=== PATIENT | male | born 2000 | race Hispanic/Latino ===

== ENCOUNTER 2024-04-28 19:38 | Emergency (ER) | payer OTHER ==
[~2024-04-28] VITALS: Ht 175.3 cm; Wt 74.8 kg
[2024-04-28] MEDS ORDERED: MORPHINE SULFATE 10 MG/ML VIAL IM ONE (20:15)
[2024-04-28 20:23] LABS: BILIRUBIN, URINE NEGATIVE (negative); BLOOD/HGB, URINE NEGATIVE (Negative); KETONE, URINE NEGATIVE (Negative); LEUK ESTERASE, URINE NEGATIVE (negative); NITRITE, URINE NEGATIVE (negative)
[2024-04-28 20:29] LABS: EPITHELIAL CELLS, URINE SQUAMOUS 1+ /lpf (0-1+)
[2024-04-28 20:30] LABS: BACTERIA, URINE RARE /hpf (negative); CASTS, URINE NONE SEEN \\lpf; COLLECTION TYPE, URINE CLEAN CATCH; CRYSTALS, URINE NONE SEEN (0-1+); RED BLOOD CELLS, URINE 0-1 /hpf (0-5); REFLEX CULTURE, URINE No (No); WHITE BLOOD CELLS, URINE 0-1 /HPF (0-5)
[2024-04-28] MEDS ORDERED: CYCLOBENZAPRINE10 MG PO (21:51)
[2024-04-28] MEDS ORDERED: CYCLOBENZAPRINE HCL 10 MG HOME.PACK PO ONE (22:00)
[2024-04-28] MEDS ORDERED: methylPREDNISolone 4 MG HOME.PACK PO ONE (22:00)
[2024-04-28 22:18] VITALS: BP 105/92
[2024-04-28 23:43] LABS: N. GONORRRHOEAE BY PCR NOT DETECTED (NOT DETECT)
== END 2024-04-28 22:16 | disposition home or self-care (01) ==
LOC: ED 19:38
PROVIDERS: Family Medicine
DX: S39.012A Strain of muscle, fascia and tendon of lower back, initial encounter (principal); S30.22XA Contusion of scrotum and testes, initial encounter; W11.XXXA Fall on and from ladder, initial encounter; W20.8XXA Other cause of strike by thrown, projected or falling object, initial encounter
CPT/HCPCS: 72100; 76870; 81001; 96372; 99284-25; J2270